=== PATIENT | female | born 1960 | race Caucasian/White ===

== ENCOUNTER → 2020-05-19 | Outpatient (CLI) | payer OTHER ==
[~2020-05-19] MED LIST: ABILIFY 2 MG TAB2 MG PO; ALBUTEROL2.5 MG/3 M INH; BYDUREON P2 MG/0.65 SQ; CLARITIN10 MG PO; CYMBALTA60 MG PO; ECOTRIN81 MG PO; FISH OIL 1,0001 EACH PO; FOLIC ACID 1 MG1 MG PO; GLUCOPHAGE XR500 MG PO; K-DUR TAB 10 M10 MEQ PO; KEFLEX CAP 500500 MG PO; LACTULOSE10 GM/151 PO; LASIX20 MG PO; MICROZIDE12.5 MG PO; NATURAL FIBER PO; NEURONTIN 400400 MG PO; NORCO 5-325 TA1 EACH PO; PLETAL 100 MG100 MG PO; PRAVASTATIN SOD10 MG PO; PROAIR HFA8.5 GM INH; PROTONIX40 MG PO; PROVENTIL HFA 61 INH INH; PROVENTIL HFA6.7 GM INH; TOPROL XL100 MG PO; TRAZODONE HCL50 MG PO; TRESIBA FL100 UNIT/1 SQ; ULTRAM50 MG PO; XYZAL5 MG PO
== END ==
LOC: HEART 5 09:52
DX: R00.2 Palpitations (principal); R06.02 Shortness of breath; I08.2 Rheumatic disorders of both aortic and tricuspid valves; R93.1 Abnormal findings on diagnostic imaging of heart and coronary circulation
CPT/HCPCS: 93306

== ENCOUNTER → 2020-05-21 | Outpatient (CLI) | payer OTHER | LOC: CT 10:07 | DX: E04.2 Nontoxic multinodular goiter (principal); Z79.899 Other long term (current) drug therapy | CPT/HCPCS: 36415; 70491; 82565; 84439; 84443; 84520; Q9963 ==

== ENCOUNTER → 2020-06-02 | Outpatient (CLI) | payer OTHER | LOC: KOH-I 13:30 | DX: D34 Benign neoplasm of thyroid gland (principal); R59.0 Localized enlarged lymph nodes | CPT/HCPCS: 76536 ==

== ENCOUNTER → 2020-06-18 | Outpatient (CLI) | payer OTHER | LOC: KOH-I 16:09 | DX: J98.4 Other disorders of lung (principal); R05 Cough | CPT/HCPCS: 71250 ==

== ENCOUNTER 2020-08-11 08:50 | Emergency (ER) | payer OTHER ==
[2020-08-11 10:04] LABS: HEMOGLOBIN 17.9 gm/dl (12.3-15.3); RED BLOOD COUNT 5.67 M/UL (4.00-5.10); WHITE BLOOD COUNT 9.5 K/UL (4.5-11.0)
[2020-08-11 10:44] LABS: BUN/CREATININE RATIO 12 (0-10)
== END 2020-08-11 14:40 | disposition home or self-care (01) ==
LOC: ER1 08:50
PROVIDERS: Physician Assistant
DX: E11.649 Type 2 diabetes mellitus with hypoglycemia without coma (principal); E87.6 Hypokalemia; E87.1 Hypo-osmolality and hyponatremia; I10 Essential (primary) hypertension; J44.9 Chronic obstructive pulmonary disease, unspecified; F17.210 Nicotine dependence, cigarettes, uncomplicated; Z88.0 Allergy status to penicillin
CPT/HCPCS: 80048; 81001; 82962; 85025; 99283

== ENCOUNTER → 2020-10-04 | Outpatient (CLI) | payer OTHER ==
[2020-10-04 11:56] LABS: RED BLOOD COUNT 5.21 M/UL (4.00-5.10); WHITE BLOOD COUNT 9.3 K/UL (4.5-11.0)
== END ==
LOC: US 07-19 10:00
PROVIDERS: Otolaryngology
DX: R59.1 Generalized enlarged lymph nodes (principal)
CPT/HCPCS: 36415; 85027; 85730

== ENCOUNTER → 2020-10-13 | Outpatient (CLI) | payer OTHER | LOC: HEART 5 11:15 | DX: R06.02 Shortness of breath (principal); R05 Cough | CPT/HCPCS: 94060; 94729 ==

== ENCOUNTER → 2021-02-03 | Outpatient (CLI) | payer OTHER | LOC: CT 09:45 → EXRD 10:20 → CT 10:30 | DX: R10.84 Generalized abdominal pain (principal); D72.829 Elevated white blood cell count, unspecified | CPT/HCPCS: 76700 ==

== ENCOUNTER → 2021-02-16 | Outpatient (CLI) | payer OTHER | LOC: MAMO 08:30 | DX: Z12.31 Encounter for screening mammogram for malignant neoplasm of breast (principal) | CPT/HCPCS: 77063; 77067 ==

== ENCOUNTER → 2021-03-11 | Outpatient (CLI) | payer OTHER | LOC: KOH-I 10:19 | DX: E04.2 Nontoxic multinodular goiter (principal) | CPT/HCPCS: 76536 ==

== ENCOUNTER → 2021-03-16 | Outpatient (CLI) | payer OTHER | LOC: MAMO 12:22 | DX: N63.31 Unspecified lump in axillary tail of the right breast (principal); R10.84 Generalized abdominal pain; D72.829 Elevated white blood cell count, unspecified | CPT/HCPCS: 76641-LT; 76881; 77065; G0279 ==

== ENCOUNTER → 2021-05-04 | Outpatient (CLI) | payer OTHER | LOC: CT 07:50 | DX: R10.84 Generalized abdominal pain (principal); R93.422 Abnormal radiologic findings on diagnostic imaging of left kidney; D72.829 Elevated white blood cell count, unspecified; Z12.31 Encounter for screening mammogram for malignant neoplasm of breast | CPT/HCPCS: 36415; 74170; 82565; Q9967 ==